=== PATIENT | male | born 1945 | race African-American/Black ===

== ENCOUNTER 2017-01-03 09:31 | Emergency (ER) | payer OTHER ==
[~2017-01-03] VITALS: Ht 175.3 cm; Wt 77.1 kg
[2017-01-03 09:42] VITALS: BP 192/112; PULSE 87; RESP 16; TEMP 97.8; O2SAT 99
--- NOTE | 2017-01-03 09:51 | NUR ---
Patient to ER bed 4 to gown for evaluation. Side rails up. Report given to Adriane SERNA.
--- NOTE | 2017-01-03 09:52 | NUR ---
Patient awake in bed, stable condition. Patient states ate dinner last night and began having abdominal pain shortly after. States had three formed bowel movement and made self vomit 1x and felt better. States that he no longer has abdominal pain. Abdomen soft non distended. No other complaints/injuries per patient or noted.
--- NOTE | 2017-01-03 10:15 | NUR ---
Dr. Mcfarland at bedside
--- NOTE | 2017-01-03 10:55 | NUR ---
Patient's blood pressure still elevated, patient did not take morning blood pressure medicatios this AM and will take when returns home. aware. Addendum: 01/03/17 at 1108 by MARLIN blood pressure medications
[2017-01-03 10:59] VITALS: BP 166/95; PULSE 88; RESP 18; TEMP 97.6; O2SAT 96
--- NOTE | 2017-01-03 10:59 | NUR ---
Patient given written and verbal discharge instructions and verbalizes understanding. ER MD discussed with patient the results and treatment provided. Patient in stable condition. ID arm band removed. Patient educated on pain management and to follow up with PMD in 3-5 days and to return for any new or worsening symptoms. Pain Scale 0/10. Opportunity for questions provided and answered.
== END 2017-01-03 10:59 | disposition home or self-care (01) ==
LOC: SED 09:31
DX: R10.84 Generalized abdominal pain (principal); R11.10 Vomiting, unspecified; I10 Essential (primary) hypertension; E78.00 Pure hypercholesterolemia, unspecified; Z86.73 Personal history of transient ischemic attack (TIA), and cerebral infarction without residual deficits
CPT/HCPCS: 99283

== ENCOUNTER 2019-08-29 12:46 | Emergency (ER) | payer OTHER ==
[~2019-08-29] VITALS: Ht 175.3 cm; Wt 77.1 kg
[2019-08-29 13:02] VITALS: BP_SYST 155
[2019-08-29] MEDS ORDERED: MAG HYDROX/AL HYDROX/SIMETH 30 ML, DICYCLOMINE HCL 20 MG, LIDOCAINE VISCOUS 2% 15ML (PO... PO ONE ×3 (13:30)
[2019-08-29 13:56] LABS: BASOPHILS % (AUTO) 0.5 % (0.0-2.0); EOSINOPHILS % (AUTO) 0.4 % (0.0-4.0); HEMATOCRIT 42.9 % (36-54); HEMOGLOBIN 14.2 g/dL (14.0-18.0); LYMPHOCYTES # (AUTO) 1.1 K/uL (1.0-5.5); LYMPHOCYTES % (AUTO) 16.9 % (20.5-51.5); MEAN CORPUSCULAR HEMOGLOBIN 27 pg (27-31); MEAN CORPUSCULAR HGB CONC 33 % (32-36); MEAN CORPUSCULAR VOLUME 83 fL (79.0-98.0); MONOCYTES # (AUTO) 0.3 K/uL (0.0-1.0); MONOCYTES % (AUTO) 4.5 % (1.7-9.3); NEUTROPHILS # (AUTO) 4.9 K/uL (1.8-7.7); NEUTROPHILS % (AUTO) 77.7 % (40.0-70.0); PLATELET COUNT (AUTO) 252 K/uL (130-430); RED BLOOD CELL COUNT(AUTO) 5.19 MIL/uL (4.2-6.2); RED CELL DISTRIBUTION WIDTH 13.3 % (9.0-15.0); WHITE BLOOD COUNT (AUTO) 6.3 K/uL (4.8-10.8)
[2019-08-29 14:13] LABS: ANION GAP 8 (5-15); CALCIUM 9.6 mg/dL (8.4-11.0); CHLORIDE 100 mmol/L (98-107); CREATININE 0.89 mg/dL (0.55-1.30); GLUCOSE 143 mg/dL (70-99); POTASSIUM 3.2 mmol/L (3.5-5.1); SODIUM SERUM 136 mmol/L (136-145); UREA NITROGEN, BLOOD 12 mg/dL (8-21)
[2019-08-29 14:19] LABS: ALANINE AMINOTRANSFERASE 18 U/L (12-78); ALBUMIN 4.3 g/dL (3.4-4.8); ASPARTATE AMINOTRANSFERASE 20 U/L (10-37); LIPASE 100 U/L (73-393); TOTAL BILIRUBIN 0.6 mg/dL (0.0-1.0)
[2019-08-29] MEDS ORDERED: POTASSIUM CHLORIDE 20 MEQ/PKT PACKET PO ONE (14:45)
[2019-08-29 15:23] VITALS: BP_SYST 142
[2019-08-30] MEDS ORDERED: CLON0.5T12 PO (02:35)
[2019-08-30] MEDS ORDERED: GLU500 PO (02:35)
[2019-08-30] MEDS ORDERED: METO25TA3 PO (02:35)
[2019-08-30] MEDS ORDERED: LIP20 PO (02:35)
[2019-08-30] MEDS ORDERED: [UNRECOGNIZED DRUG - CODE] MC (02:35)
[2019-08-30] MEDS ORDERED: NIFE90TA48 PO (02:35)
== END 2019-08-29 15:23 | disposition home or self-care (01) ==
LOC: SED 12:46
DX: K80.20 Calculus of gallbladder without cholecystitis without obstruction (principal); E78.5 Hyperlipidemia, unspecified; E11.9 Type 2 diabetes mellitus without complications; I10 Essential (primary) hypertension
CPT/HCPCS: 36415; 74176; 80053; 81002; 83690; 85025; 99284; J2001; J7030; J7040

== ENCOUNTER 2019-08-29 22:43 | Inpatient (IN) | payer OTHER ==
[~2019-08-29] VITALS: Ht 175.3 cm; Wt 69.9 kg
[2019-08-29 23:06] VITALS: BP_SYST 184
--- NOTE | 2019-08-29 23:10 | NUR ---
Patient to ER bed 04 to gown for evaluation. Side rails up. Report given to KAREEM JANE
--- NOTE | 2019-08-29 23:10 | NUR ---
patient arrived from home AOx4 with c/o abd pain x yesterday. patient was last seen this morning for similar complaint. patient states " the medication works great when I take it." patient has not seen a primary care doctor. patient states "the doctor told me to come back if i can't eat anything."patient last took medication at noon today. patient has normal bowelsounds.patient denies pain with palpation. patient states "my stomach feels raw, like its been eaten up." no other complaint or injury at this time.
--- NOTE | 2019-08-29 23:42 | NUR ---
Dr. Alonso bedside for Pt eval
[2019-08-30] MEDS ORDERED: NS 500 ML IV ONE
[2019-08-30] MEDS ORDERED: ONDANSETRON HCL 4 MG/2 ML VIAL IVP ONE
[2019-08-30] MEDS ORDERED: MORPHINE 2 MG/ML INJ. SYRINGE IVP ONE
--- NOTE | 2019-08-30 | NUR ---
patient resting without complaint at this time. patient stated he vomited in trash can. no vomit found in trash can. patient refused CT with contrast. MD notified. no other complaint or injury at this time.
[2019-08-30] MEDS ORDERED: IOHEXOL 350 mgI/mL, 150 ML INFUS..BTL IV ONE (00:34)
[2019-08-30 01:48] LABS: ANION GAP 12 (5-15); CHLORIDE 99 mmol/L (98-107); CREATININE 0.76 mg/dL (0.55-1.30); GLUCOSE 130 mg/dL (70-99); POTASSIUM 3.2 mmol/L (3.5-5.1); SODIUM SERUM 133 mmol/L (136-145); UREA NITROGEN, BLOOD 8 mg/dL (8-21)
[2019-08-30 01:54] LABS: ALANINE AMINOTRANSFERASE 16 U/L (12-78); ALBUMIN 3.9 g/dL (3.4-4.8); ASPARTATE AMINOTRANSFERASE 18 U/L (10-37); TOTAL BILIRUBIN 0.5 mg/dL (0.0-1.0)
[2019-08-30] MEDS ORDERED: INSULIN LISPRO SLIDING SCALE 100 UNITS/ML VIAL (humaLOG) SUBCUT PRN (02:15)
[2019-08-30] MEDS ORDERED: ONDANSETRON HCL 4 MG/2 ML VIAL IVP PRN (02:15)
[2019-08-30] MEDS ORDERED: KCL 20 mEq in NS 1000 mL 1,000 ML IV SCH (02:15)
[2019-08-30] MEDS ORDERED: MORPHINE 2 MG/ML INJ. SYRINGE IVP PRN ×2 (02:15→04:45)
[2019-08-30] MEDS ORDERED: ACETAMINOPHEN 650 MG SUPP.RECT RC PRN (02:15)
--- NOTE | 2019-08-30 02:18 | NUR ---
Medication recon not complete. Patient cannot recall the names or dosages of medication.
[2019-08-30] MEDS ORDERED: LIP20 PO (02:35)
[2019-08-30] MEDS ORDERED: GLU500 PO (02:35)
[2019-08-30] MEDS ORDERED: NIFE90TA48 PO (02:35)
[2019-08-30] MEDS ORDERED: METO25TA3 PO (02:35)
[2019-08-30] MEDS ORDERED: [UNRECOGNIZED DRUG - CODE] MC (02:35)
[2019-08-30] MEDS ORDERED: CLON0.5T12 PO (02:35)
--- NOTE | 2019-08-30 02:40 | NUR ---
ADMISSION NOTE Received patient from ER via ethan, received report from rafaela SERNA. Patient admitted with diagnosis of abd pain, vomiting, hypokalemia. Patient oriented to hospital routine, call light, toileting and safety-patient verbalized understanding.
[2019-08-30 02:42] VITALS: BP_SYST 199
--- NOTE | 2019-08-30 02:48 | NUR ---
Patient will be admitted to care of Dr. Wheeler. Admitted to tele unit. Will go to room 107B. Belongings list completed. Summary report printed. Report will be given at bedside.
--- NOTE | 2019-08-30 02:49 | NUR ---
patient provided medication but can not recall the freqency. input data collected.
[2019-08-30] MEDS ORDERED: KCL 20 mEq in NS 1000 mL 1,000 ML IV ONE (03:33)
--- NOTE | 2019-08-30 04:27 | NUR ---
PATIENT PULLED OUT HIS IV ON THE LEFT AC. CATHETER INTACT. NEW IV STARTED ON THE LEFT FOREARM #22G, CURRENTLY INFUSING IVF PER MD ORDER, SEE EMAR FOR DETAILS. PATIENT TOLERATED PROCEDURE WELL.
--- NOTE | 2019-08-30 04:34 | NUR ---
Spoke with Dr Wheeler. Patient states he has pain, but does not want to take the morphine. Dr Wheeler ordered to lower the dosage to 0.5mg morphine q4hp for moderate pain. Orders noted.
--- NOTE | 2019-08-30 04:46 | NUR ---
CONSULT: CONSULT CALLED FOR DR. JON I SPOKE WITH ADOLFO JARAMILLO REASON FOR CONSULT: ABDOMINAL PAIN AND VOMITING REQUESTING CONSULT: DR. ISAACS GENERAL ADMINISTRATOR PHONE NUMBER: [phone]
--- NOTE | 2019-08-30 04:49 | NUR ---
CONSULT: CONSULT CALLED FOR DR. ALCANTAR I SPOKE WITH ADOLFO JARAMILLO REASON FOR CONSULT: BLOODY VOMITING AND HYPOKALEMIA REQUESTING CONSULT: DR. ISAACS INSTRUCTOR [employer]OTICS PHONE NUMBER: [phone]
--- NOTE | 2019-08-30 04:52 | NUR ---
DR. KATHARINE ESCOBAR CALLED REGARDING THE CONSULT
--- NOTE | 2019-08-30 05:02 | NUR ---
Called Dr Wheeler. Patient's BP was 199/[address] Wheeler ordered vasotec 0.625mg IVP Q6P for SBP > 160. Orders noted.
[2019-08-30] MEDS: ENALAPRILAT DIHYDRATE 1.25 MG/ML VIAL IVP PRN ×2 (05:20→11:05)
--- NOTE | 2019-08-30 05:37 | NUR ---
Dr Azul called the nurses station. Notified him regarding the consult and answered any questions he may have. Dr Woodruff stated that he will have to consult with Dr Wheeler regarding potentially placing NGTUBE to suction out stomach contents or something else, based on the results from the CT of the abd/pelvis. No orders at this time.
--- NOTE | 2019-08-30 06:25 | NUR ---
Closing Notes Patient is resting comfortably in bed, aaox4. No SOB, no acute distress, no signs of pain or discomfort at this time. IV site intact, dressing clean and dry, currently infusing ivf per MD order, see eMAR for details.. Bed is locked, in the lowest position, 2x side rails up. Patient refuses bed alarm at this time. Able to ambulate independently without assistance, steady gait. Call light is within reach. Fall and safety precautions maintained. All needs have been met during this shift. Will endorse care to oncoming dayshift nurse.
--- NOTE | 2019-08-30 07:19 | NUR ---
DR BOLDEN AT THE BEDSIDE TO SEE THE PATIENT. DR BOLDEN RECOMMENDED EGD TO THE PATIENT, BUT PATIENT REFUSED. ALL CONCERNS AND QUESTIONS HAVE BEEN ANSWERED BY DR BOLDEN AT THIS TIME.
--- NOTE | 2019-08-30 07:37 | NUR ---
AM ROUNDS: Oriented x4. Patient denies nausea, denied episodes of vomiting. States still feels a little sore in the stomach but feels much better compared to the pre admission. Call light within reach. Kept NPO. IV fluid of NS + KCL 20MEQ on the left forearm gauge 22. Safety precautions observed.
[2019-08-30 08:37] VITALS: BP_SYST 195
[2019-08-30] MEDS ORDERED: PANTOPRAZOLE SODIUM 40 MG/VIAL (PROTONIX) IVP SCH (09:00)
[2019-08-30] MEDS ORDERED: POTASSIUM CHLORIDE 30 MEQ in NS 250 ML IV ONE (09:30)
[2019-08-30 11:16] VITALS: BP_SYST 196
--- NOTE | 2019-08-30 11:30 | NUR ---
SURGICAL CONSULT: Seen by Tj Azul. MD spoke with patient and son, both understood the explanation of the MD.
[2019-08-30] MEDS ORDERED: DIATR MEGLU/DIATRIZ SOD 30 ML SOLUTION PO ONE (13:12)
[2019-08-30] MEDS ORDERED: ENALAPRILAT DIHYDRATE 1.25 MG/ML VIAL IVP PRN (13:15)
--- NOTE | 2019-08-30 14:35 | NUR ---
AMA: Was seen by Dr. Wheeler, patient wants to go home to see if abdominal pain would come back after having a meal. Patient refused to do the tests ordered and prefers to go to his PCP instead. Dr. Wheeler offered to talk to patient's PCP and explained the need of the tests/ procedures but patient declined and opted to leave against medical advice.
== END 2019-08-30 14:58 | disposition left against medical advice (07) | DRG 445 ==
LOC: SED 22:43 → STU 08-30 02:06
PROVIDERS: ADMIT Internal Medicine; ATTEND Internal Medicine
DX: K80.20 Calculus of gallbladder without cholecystitis without obstruction (principal); E87.1 Hypo-osmolality and hyponatremia; E11.65 Type 2 diabetes mellitus with hyperglycemia; E78.5 Hyperlipidemia, unspecified; I10 Essential (primary) hypertension; Z83.3 Family history of diabetes mellitus; Z86.73 Personal history of transient ischemic attack (TIA), and cerebral infarction without residual deficits; Z87.891 Personal history of nicotine dependence; Z79.899 Other long term (current) drug therapy
CPT/HCPCS: 36415; 76700-TC; 80053; 81002; 82962; 83690-TC; 83735-TC; 84484; 85025; 93005; 96361; 96374; 99284; 99285; C9113; G0378; J2001; J2270; J2405; J3480; J7030; J7040; J7050; Q9964; Q9967

== ENCOUNTER 2019-09-27 08:12 | Outpatient (CLI) | payer OTHER ==
[~2019-09-27 08:12] MED LIST: CLON0.5T12 PO; GLU500 PO; LIP20 PO; METO25TA3 PO; NIFE90TA48 PO; [UNRECOGNIZED DRUG - CODE] MC
== END 2019-09-27 21:15 | disposition home or self-care (01) ==
LOC: SRD 08:12
DX: I10 Essential (primary) hypertension (principal)
CPT/HCPCS: 71046-TC